=== PATIENT | male | born 1965 | race Two or more races ===

== ENCOUNTER 2020-11-20 17:48 | Emergency (ER) | payer SELFPAY ==
[~2020-11-20] VITALS: Ht 170.2 cm; Wt 84.1 kg
[2020-11-20] MEDS ORDERED: DEXAMETHASONE 10 MG/ML VIAL IV ONE (19:00)
[2020-11-20 20:29] LABS: BASOPHILS % 0.4 % (0.0-2.0); EOSINOPHILS % 3.5 % (0.0-5.0); HEMATOCRIT. 41.1 % (42.0-52.0); LYMPHOCYTES % 18.3 % (20.0-50.0); MEAN CORPUSCULAR HEMOGLOBIN 29.7 pg (28.0-32.0); MEAN CORPUSCULAR VOLUME 87.1 fL (80.0-94.0); MONOCYTES % 8.7 % (2.0-8.0); NEUTROPHILS % 69.1 % (40.0-76.0); PLATELET 354 x1000/uL (130-400); RED BLOOD CELL COUNT 4.72 mill/uL (4.7-6.1); RED CELL DISTRIBUTION WIDTH 13.1 % (11.6-14.6)
[2020-11-20 20:31] LABS: CHLORIDE 103 mEq/L (98-107)
[2020-11-20 20:37] LABS: PROTHROMBIN TIME 10.8 sec (9.6-11.0)
[2020-11-20 20:43] LABS: CREATINE KINASE 163 IU/L (39-308)
[2020-11-20 21:06] LABS: FIBRINOGEN > 850 mg/dL (200-400)
[2020-11-20] MEDS ORDERED: AZITHROMYCIN 500 MG TABLET PO ONE (21:30)
[2020-11-20] MEDS ORDERED: ALBUTEROL 6.7GM HFA INHALER ORI ONE (21:30)
[2020-11-20 23:24] VITALS: BP 137/88
== END 2020-11-20 23:26 | disposition home or self-care (01) ==
LOC: ER 17:48 → CANBEDREQ 22:12 → ER 23:26
DX: U07.1 COVID-19 (principal); J12.82 Pneumonia due to coronavirus disease 2019; I10 Essential (primary) hypertension
CPT/HCPCS: 36415; 71045; 80053; 82550; 82728; 83605; 83615; 83690; 84145; 84484; 85025; 85384; 85610; 86140; 87040; 93005; 94640; 96374; 99285; J1100; Z7610